=== PATIENT | female | born 1960 | race Caucasian/White ===

== ENCOUNTER 2019-01-16 10:18 | Observation (INO) | payer OTHER, BC ==
[~2019-01-16 10:18] MED LIST: Aspirin 81 mg CHEW TAB* 81 MG TAB.CHEW PO SCH
[2019-01-16 11:15] LABS: ABS Basophils 0.1 10^3/ul (0-0.2); ABS Eosinophils 0.1 10^3/ul (0-0.6); ABS Lymphocytes 1.3 10^3/ul (1.0-4.8); ABS Monocytes 0.8 10^3/ul (0-0.8); ABS Neutrophils 5.5 10^3/ul (1.5-7.7); Eosinophil % 1.7 %; Hematocrit 42 % (35-47); Hemoglobin 13.9 g/dL (12.0-16.0); Mean Corpuscular HGB Conc 33 g/dL (31-36); Mean Corpuscular Hemoglobin 31 pg (27-31); Mean Corpuscular Volume 92 fL (80-97); Mean Platelet Volume 9.5 fL (7.4-10.4); Nucleated Red Blood Cells % 0.2; Platelet Count 151 10^3/uL (150-450); Red Blood Count 4.52 10^6 /uL (3.70-4.87); Red Cell Distribution Width 13 % (10-15); White Blood Count 7.9 10^3/uL (3.5-10.8)
[2019-01-16 11:36] LABS: Albumin 4.2 g/dL (3.2-5.2); Albumin/Globulin Ratio 1.4 (1-3); BUN/Creatinine Ratio 22.8 (8-20); EGFR African American 131.8 (>60); EGFR Non-African American 108.9 (>60); Globulin 2.9 g/dL (2-4); Potassium 3.9 mmol/L (3.5-5.0); Total Bilirubin 0.4 mg/dL (0.2-1.0); Total Protein 7.1 g/dL (6.4-8.9)
[2019-01-16 11:38] LABS: Troponin I 0.01 ng/mL (<0.04)
--- NOTE | 2019-01-16 12:04 | ED ---
HPI Chest Pain - HPI Summary HPI Summary: This patient is a 58 year old F presenting to [facility] with a chief complaint of CP since 2 hours ago.The patient rates the pain 0/10 in severity. Patient states she had routine stress test today and was sent to ED for further evaluation. Symptoms aggravated by exertion. Symptoms alleviated by rest. Patient reports CP and SOB when she exercises Patient denies fever, chills, erythema of eyes, sore throat, cough, abdominal pain, N/V, dysuria, hematuria, myalgia, edema, rash, or dizziness. Patient does not smoke or drink. Her mother and father both had heart disease. She has hx of HTN and high cholesterol. - History of Current Complaint Chief Complaint: EDGeneral Time Seen by Provider: 01/16/19 10:37 Hx Obtained From: Patient Onset/Duration: Started Hours Ago - 2 Timing: Lasting Hours - 2 Initial Severity: Mild Current Severity: None Pain Intensity: 0 Pain Scale Used: 0-10 Numeric Aggravating Factor(s): Exertion Alleviating Factor(s): Rest Associated Signs and Symptoms: Positive: Chest Pain, Shortness of Breath. Negative: Dizziness, Fever, Chills, Nausea, Cough, Productive Cough, Abdominal Pain, Vomiting - Allergy/Home Medications Allergies/Adverse Reactions: Allergies Allergy/AdvReac Type Severity Reaction Status Date / Time Sulfa (Sulfonamide Allergy Swelling Verified 01/16/19 10:31 Antibiotics) Of Face,Lips,& Throat PMH/Surg Hx/FS Hx/Imm Hx Previously Healthy: No Opthamlomology History: Denies: Hx Cataracts, Hx Legally Blind EENT History: Denies: Hx Deafness - Cancer History Hx Chemotherapy: No Hx Radiation Therapy: No - Surgical History Surgical History: Yes Surgery Procedure, Year, and Place: Infectious Disease History: No Infectious Disease History: Denies: Traveled Outside the [place] in Last 30 Days - Family History Known Family History: Positive: Cardiac Disease - mother and father had heart disease - Social History Alcohol Use: None Hx Substance Use: No Substance Use Type: Reports: None Hx Tobacco Use: No Smoking Status (MU): Never Smoked Tobacco Do You Chew or Dip Tobacco: No Have You Chewed or Dipped Tobacco in the LAST YEAR: No Have You Smoked in the Last Year: No Review of Systems Negative: Fever, Chills Negative: Erythema Negative: Sore Throat Positive: Chest Pain Positive: Shortness Of Breath. Negative: Cough Negative: Abdominal Pain, Vomiting, Nausea Negative: dysuria, hematuria Negative: Myalgia, Edema Negative: Rash Neurological: Other - negative - dizziness All Other Systems Reviewed And Are Negative: Yes Physical Exam - Summary Physical Exam Summary: Constitutional: Well-developed, Well-nourished, Alert. (-) Distressed Skin: Warm, Dry HENT: Normocephalic; Atraumatic Eyes: Conjunctiva normal Neck: Musculoskeletal ROM normal neck. (-) JVD, (-) Stridor, (-) Tracheal deviation Cardio: Rhythm regular, rate normal, Heart sounds normal; Intact distal pulses; The pedal pulses are 2+ and symmetric. Radial pulses are 2+ and symmetric. (-) Murmur Pulmonary/Chest wall: Effort normal. (-) Respiratory distress, (-) Wheezes, (-) Rales Abd: Soft, (-) tenderness, (-) Distension, (-) Guarding, (-) Rebound Musculoskeletal: (-) Edema Lymph: (-) Cervical adenopathy Neuro: Alert, Oriented x3 Psych: Mood and affect Normal Triage Information Reviewed: Yes Vital Signs On Initial Exam: Initial Vitals Temp Pulse Resp BP Pulse Ox 97.3 F 80 16 164/88 100 01/16/19 10:28 01/16/19 10:28 01/16/19 10:28 01/16/19 10:28 01/16/19 10:28 Vital Signs Reviewed: Yes Diagnostics - Vital Signs Vital Signs Temp Pulse Resp BP Pulse Ox 01/16/19 11:00 79 20 100 01/16/19 10:46 76 23 99 01/16/19 10:45 78 171/81 100 01/16/19 10:28 97.3 F 80 16 164/88 100 - Laboratory Lab Results: Lab Results 01/16/19 01/16/19 01/16/19 Range/Units 11:07 11:07 11:07 WBC 7.9 (3.5-10.8) 10^3/uL RBC 4.52 (3.70-4.87) 10^6 /uL Hgb 13.9 (12.0-16.0) g/dL Hct 42 (35-47) % MCV 92 (80-97) fL MCH 31 (27-31) pg MCHC 33 (31-36) g/dL RDW 13 (10-15) % Plt Count 151 (150-450) 10^3/uL MPV 9.5 (7.4-10.4) fL Neut % (Auto) 70.0 % Lymph % (Auto) 17.0 % [place] % (Auto) 9.8 % Eos % (Auto) 1.7 % Baso % (Auto) 1.5 % Absolute Neuts (auto) 5.5 (1.5-7.7) 10^3/ul Absolute Lymphs (auto) 1.3 (1.0-4.8) 10^3/ul Absolute Monos (auto) 0.8 (0-0.8) 10^3/ul Absolute Eos (auto) 0.1 (0-0.6) 10^3/ul Absolute Basos (auto) 0.1 (0-0.2) 10^3/ul Absolute Nucleated RBC 0.0 10^3/ul Nucleated RBC % 0.2 Sodium 139 (135-145) mmol/L Potassium 3.9 (3.5-5.0) mmol/L Chloride 106 (101-111) mmol/L Carbon Dioxide 26 (22-32) mmol/L Anion Gap 7 (2-11) mmol/L BUN 13 (6-24) mg/dL Creatinine 0.57 (0.51-0.95) mg/dL Est GFR ( Amer) 131.8 (>60) Est GFR (Non-Af Amer) 108.9 (>60) BUN/Creatinine Ratio 22.8 H (8-20) Glucose 105 H (70-100) mg/dL Lactic Acid 2.2 H* (0.5-2.0) mmol/L Calcium 10.0 (8.6-10.3) mg/dL Total Bilirubin 0.40 (0.2-1.0) mg/dL AST 22 (13-39) U/L ALT 20 (7-52) U/L Alkaline Phosphatase 106 H (34-104) U/L Troponin I 0.01 (<0.04) ng/mL Total Protein 7.1 (6.4-8.9) g/dL Albumin 4.2 (3.2-5.2) g/dL Globulin 2.9 (2-4) g/dL Albumin/Globulin Ratio 1.4 (1-3) Result Diagrams: 01/16/19 11:07 01/16/19 11:07 Lab Statement: Any lab studies that have been ordered have been reviewed, and results considered in the medical decision making process. - Radiology CXR Radiology Interpretation Completed By: Radiologist Summary of Radiographic Findings: IMPRESSION: NO ACTIVE CARDIOPULMONARY DISEASE. These findings were reviewed by Dr. Mccord. - EKG 1040 Cardiac Rate: NL - 76 BPM EKG Rhythm: Sinus Rhythm Summary of EKG Findings: 76 BPM, sinus rhythm, no STEMI Chest Pain Course/Dx - Course Course Of Treatment: This patient is a 58 year old F presenting to [facility] with a chief complaint of CP since 2 hours ago.The patient rates the pain 0/10 in severity. Patient states she had routine stress test today and was sent to ED for further evaluation. Symptoms aggravated by exertion. Symptoms alleviated by rest. Patient reports CP and SOB when she exercises. Patient denies fever, chills, erythema of eyes, sore throat, cough, abdominal pain, N/V, dysuria, hematuria, myalgia, edema, rash, or dizziness. Patient does not smoke or drink. Her mother and father both had heart disease. She has hx of HTN and high cholesterol. Physical exam shows no significant findings. Lab results show BUN /creatinine ratio 22.8, glucose 105, lactic acid 2.2, alkaline phosphatase 106. EKG at 1040 shows 76 BPM, sinus rhythm, no STEMI. CXR IMPRESSION: NO ACTIVE CARDIOPULMONARY DISEASE. During the ED course, the patient was given aspirin and Lipitor. At 1153, Dr. Mccord discussed patient's case with Dr. Baptiste, cardiology. Dr. Baptiste agrees to admit patient. Patient is agreeable. - Diagnoses Provider Diagnoses: SOB (shortness of breath), Abnormal stress test - Provider Notifications Discussed Care Of Patient With: Zeeshan Baptiste Time Discussed With Above Provider: 11:53 Instructed by Provider To: Other - Dr. Mccord discussed patient's case with Dr. Baptiste, cardiology. Dr. Baptiste agrees to admit patient. Discharge - Sign-Out/Discharge Documenting (check all that apply): Patient Departure - admit Patient Received Moderate/Deep Sedation with Procedure: No - Discharge Plan Condition: Stable Disposition: ADMITTED TO [facility] - Billing Disposition and Condition Condition: STABLE Disposition: Admitted to [facility] - Attestation Statements Document Initiated by Zaneibe: Yes Documenting Scribe: Aron Lara Provider For Whom Scribe is Documenting (Include Credential): Dr. Storm Mccord MD Scribe Attestation: I, Aron Lara, scribed for Dr. Storm Mccord MD on 01/16/19 at 1606. Scribe Documentation Reviewed: Yes Provider Attestation: The documentation as recorded by the rAon brunson accurately reflects the service I personally performed and the decisions made by me, Dr. Storm Mccord MD Status of Scribe Document: Viewed
[2019-01-16 12:06] LABS: INR 1.09 (0.82-1.09)
[2019-01-16] MEDS: Aspirin 81 mg CHEW TAB* 81 MG TAB.CHEW PO SCH (12:32)
[2019-01-16] MEDS ORDERED: Metoprolol Succinate XL TAB* 100 MG PO ONE (12:53)
--- NOTE | 2019-01-16 13:01 | HP ---
AMENDED REPORT NOW INCLUDES DESIGNATED COSIGNER HISTORY AND PHYSICAL: DATE OF ADMISSION: 01/16/19 ATTENDING PHYSICIAN: Dr. Rodriguez, cardiology.* (DICTATED BY AMADOR WILDER NP) PRIMARY SHOESHINER: Dr. Jacob. PRIMARY CARE PHYSICIAN: Dr. Gutierrez. REASON FOR ADMISSION: Abnormal cardiovascular stress test suggestive of apical/ lateral ischemia with ST-segment depression and reproduction of chest pain. HISTORY OF PRESENT ILLNESS: This is a pleasant 58-year-old female patient with a notable history of idiopathic thrombocytopenia, followed by Dr. Degroot, who historically received Rituxan therapy. 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 The patient states that since July 2018, she has been noticing intermittent periods of chest pain described as tightness. She states that symptoms will occur when she is doing more than typical activity such as rushing from one campus building to another where she is employed through [employer] at [employer]. She denies resting symptoms. She denies progression of symptomatology such as increased frequency or duration of symptoms. She was seen in consultation by Dr. Jacob on 12/07/18. Due to symptomatology and risk factors, she was risk stratified with echocardiograms, which per report from 01/06/19 LVEF 55% to 60%, normal wall motion, grade 1 diastolic dysfunction , [id number] aortic insufficiency, mild- to-moderate mitral insufficiency , moderate tricuspid insufficiency, moderate pulmonary hypertension, right ventricular systolic pressure was 45 mmHg, mild borderline dilated ascending aorta. She underwent exercise stress echo today with Dr. Jacob. Per verbal report from Dr. Jacob, the patient had reproduction of chest tightness with positive ST-segment depression and apical lateral ischemia on echocardiogram. Thus, she was sent to [facility] for elective heart catheterization and observation. She is currently free of symptoms. She states that she has not received her metoprolol today. Systolic pressure in the emergency department is 170. Her is at the bedside. She denies any recent illness, infection, hospitalization and reports compliance with medications. Historically, she opted for lifestyle modification for hyperlipidemia; however, she is agreeable to starting statin therapy given probable coronary artery disease based on abnormal stress test today. Her platelets have remained stable after Rituxan therapy; however, I did speak to Nazanin at Dr. Degroot's office to inquire as to whether or not this patient will be a candidate for dual antiplatelet therapy. PAST MEDICAL HISTORY: 1. GERD. 2. Hypertension. 3. Hyperlipidemia. 4. Positive ADRIANA. 5. Rabs-gh-tdgcpfjp aortic insufficiency. 6. Pulmonary hypertension. 7. Zszu-nc-udgilbti mitral regurgitation. 8. Moderate tricuspid regurgitation. 9. PVCs. 10. A 3.5 cm TTA. PAST SURGICAL HISTORY: Includes . HOME MEDICATIONS: Include: 1. Metoprolol 100 mg a day. 2. Dupixent. Apparently, the patient receives injection every 2 weeks at the discretion of Dr. Linares for newly diagnosed eczema. ALLERGIES: The patient denies allergy to contrast dye or shellfish. She is allergic to SULFA, unknown reaction. FAMILY HISTORY: Mother at the age of 62 due to complications of cardiovascular disease. Father at the age of 60 due to complications of cardiovascular disease. Siblings have hypercholesterolemia. SOCIAL HISTORY: The patient is , lives at home with her . She is employed at [employer], where she works in the [employer] division. She denies alcohol, tobacco, or drug use. She consumes 1 cup of decaffeinated coffee a day. She exercises sporadically. REVIEW OF SYSTEMS: All systems have been reviewed and, otherwise, negative except as above mentioned in the HPI. PHYSICAL EXAMINATION GENERAL: The patient is lying in bed, with nurse at bedside trying to gain IV access. is at bedside as well. She appears in no apparent distress. She is cooperative with examination. She is alert and oriented x3. VITAL SIGNS: Temperature 97.3, pulse 80, respirations 16, oxygenation 100% on room air, blood pressure 164/88. HEENT: Head is atraumatic, normocephalic. Oral mucosa is moist. Tongue is midline. NECK: Supple. Trachea midline. No JVD. No carotid bruits. LUNGS: Auscultated posteriorly. No evidence of adventitious breath sounds. CARDIAC: Normal S1, S2. Regular rate and rhythm. There is a grade 2/5 diastolic right sternal border murmur consistent with AI. Otherwise, no gallop or rub noted. /GI: Abdomen is soft, nontender. Normoactive bowel sounds x4. EXTREMITIES: No pedal edema, no clubbing, no cyanosis. PERIPHERAL VASCULAR: 2+ brachial and dorsalis pedis pulses palpated bilaterally and symmetrically. DIAGNOSTIC STUDIES/LAB DATA: Blood work obtained 01/16/19: White count 7.9, hemoglobin 13.9, hematocrit 42, platelets 151. CMP, PT, INR, and troponin are currently pending. ECG, 01/16/19: Sinus rhythm, rate 76. There is no ST-segment elevation, T- wave changes, or pathologic Q waves appreciated. ASSESSMENT AND PLAN: 1. Abnormal stress echocardiogram suggestive of apical lateral ischemia with reproduction of chest tightness and ST-segment depression. Official report is pending. Risk factors include hypertension, hyperlipidemia, and family history. The patient will be admitted to telemetry in observation status. Potential cardiac catheterization tomorrow, 01/17/19. I did speak with Dr. Degroot 's office and asked that Dr. Degroot contact Dr. Rodriguez to ensure that the patient would be a candidate for potential dual antiplatelet therapy if indicated. At this current time, we will initiate Lipitor 80 mg p.o. at bedtime. Her last LDL was 179 in September 2018. She is agreeable to statin initiation. We will also start aspirin 81 mg a day. Make the patient n.p.o. after midnight. Await CMP, PT, INR, and follow closely. The patient is aware of the risks versus benefits for cardiac catheterization including the role of dual antiplatelet therapy, potential need for transfer if she needs bypass surgery, risks of stroke; heart attack; . We will have consent obtained by Dr. Rodriguez if applicable after discussion with Dr. Degroot. 2. History of hypertension. Systolic blood pressure in the emergency department is 168. She states that she has not received metoprolol today. Thus , I have asked the emergency room nurse caring for the patient to administer metoprolol 100 mg a day. Recommend a goal blood pressure less than 130/80 given known 3.5 cm thoracic aortic ectasia. We will follow. 3. History of hyperlipidemia. LDL is 179. Goal LDL if the patient truly has coronary artery disease is less than 70. Thus, we will start Lipitor 80 mg p.o. at bedtime. She will need repeat fasting lipid and liver function tests in 6 weeks' time. 4. History of idiopathic thrombocytopenic purpura with prior use of Rituxan therapy. Platelets are stable. Follows with Dr. Degroot. We will await Dr. Degroot' s input in regards to whether or not the patient is a candidate for dual antiplatelet therapy. 5. Disposition. Pending course. The patient is full code. We will admit to [address] and follow closely. Dr. Rodriguez agrees with the above assessment and plan. Please assign Dr. Rodriguez as co signing physician AMADOR WILDER, RAIL CAR DRIVER [id number]/[facility] #: [id number] LIAM
[2019-01-16 18:17] LABS: Troponin I 0.02 ng/mL (<0.04)
[2019-01-16] MEDS ORDERED: Nitroglycerin TAB 0.4 MG* 0.4 MG TAB SL PRN (19:44)
[2019-01-16 20:42] LABS: HDL Cholesterol 37.1 mg/dL
[2019-01-16] MEDS ORDERED: Atorvastatin* 80 MG TAB PO ONE (21:00)
[2019-01-17] MEDS ORDERED: NS 0.9% 1000 ML** 1,000 ML IV SCH ×2 (08:00→10:45)
[2019-01-17] MEDS ORDERED: Metoprolol Succinate XL TAB* 100 MG PO SCH (09:00)
[2019-01-17] MEDS: Aspirin 81 mg CHEW TAB* 81 MG TAB.CHEW PO SCH (09:03)
[2019-01-17] MEDS ORDERED: Iohexol 350 (CONTRAST) 200 ML MDV IV ONE (09:11)
[2019-01-17] MEDS ORDERED: Heparin 2 UNITS/ML IVPREMIX* 2,000 UNIT/1,000 ML BAG IV ONE (09:11)
[2019-01-17] MEDS ORDERED: Lidocaine 1% INJ* 10 MG/ML 30 ML SDV ONE (09:11)
[2019-01-17] MEDS ORDERED: Midazolam* 1 MG/ML 5 ML VIAL (5 MG) ONE (09:19)
[2019-01-17] MEDS ORDERED: fentaNYL* 50 MCG/ML 2 ML VIAL (100 MCG VIAL) ONE (09:19)
[2019-01-17] MEDS ORDERED: Heparin(*) 1000 UNIT/ML 10 ML VIAL CATH LAB IV ONE (09:21)
[2019-01-17] MEDS ORDERED: VERAPAMIL 2.5 MG/ML 2 ML VIAL ** 5 mg/2 ml ONE (09:21)
[2019-01-17] MEDS ORDERED: nitroGLYCERIN DRIP* 25,000 MCG/250 ML BTL ONE (09:22)
[2019-01-17] MEDS ORDERED: Lisinopril TAB* 5 MG PO SCH (11:00)
[2019-01-17 14:27] VITALS: BP 144/63
--- NOTE | 2019-01-17 19:09 | DS ---
CC: Dr. Jacob; Dr. Bimal Gutierrez * DISCHARGE SUMMARY: DATE OF ADMISSION: 01/16/19 DATE OF DISCHARGE: 01/17/19 FAMILY NURSE: Dr. Jacob. PRIMARY: Dr. Bimal Gutierrez. DISCHARGE DIAGNOSES: 1. Angina pectoris, functional class 1. 2. Hypertension. 3. Hyperlipidemia. PROCEDURES: Cardiac cath, right radial access, 01/17/19. DISCHARGE MEDS: Unchanged: 1. prol-XL 100 mg daily. New medications: 1. Nitroglycerin 0.4 sublingual p.r.n. 2. Aspirin 81 mg daily. 3. Lisinopril 5 mg daily. 4. Lipitor 80 mg daily. ACTIVITY: To avoid strenuous exertion for the next week; to minimize lifting, right hand; wound care shower only for 3 days. FOLLOWUP: Risk check with Dr. Mills next week as scheduled, subsequent follow up Dr. Jacob. HISTORY: See H and P. LABORATORY DATA: Admission CBC, BMP were notable only for random blood sugar of 105. Her creatinine was 0.57. Alk phos elevated at 106. Her troponin 0.01 , 0.03, 0.02. Cholesterol after several months of dietary modification, total 208. Triglycerides 81, LDL, 155, HDL 37.1. EKG, normal sinus rhythm, normal tracing. Chest x-ray 01/16/19, per report, no active disease. HOSPITAL COURSE: She underwent cardiac cath for history of stable functional class 1 angina, on submaximal medical therapy, but with an intermediate risk stress echo. She has a history of hyperlipidemia and has tried dietary modification to lower her LDL, which remains elevated nonetheless. She has a history of hypertension, generally well controlled with Toprol-XL. Cardiac cath via the right radial approach was uncomplicated, reveled normal LV systolic function with a normal ejection fraction of 65%. Her RCA is small and not dominant, her circumflex is large, dominant with a proximal 75% stenosis traversing the origin of a marginal side branch, Ruby 1, 1, 1 bifurcation lesion. Her LAD is relatively small in caliber, has a long, approximately 40 mm , diffuse mid segment stenosis of approximately 50% to 60%. As she has functional class 1 angina, on submaximal therapy, has not been treated with statins, initial management will be medical with addition of a high dose potent statin, and STEVEN inhibitor for hypertension, and aspirin 81 mg daily. She was also given nitroglycerin sublingual and instructed on its use. If she fails medical management, she is certainly a candidate for percutaneous revascularization. She will follow up next week with a wrist check and with Dr. Jacob subsequently. I have emphasized to them the lack of evidence supporting stenting for stable coronary artery disease other than for improved functional capacity. She received full discharge instructions. [id number]/[facility] #: [id number] LIAM
[2019-01-17] MEDS ORDERED: Atorvastatin* 80 MG TAB PO SCH (21:00)
== END 2019-01-17 15:34 | disposition home or self-care (01) ==
LOC: ED 10:18 → MEDTELE 11:25
PROVIDERS: ADMIT Internal Medicine Cardiovascular Disease; ATTEND Internal Medicine Cardiovascular Disease
DX: I20.9 Angina pectoris, unspecified (principal); I10 Essential (primary) hypertension; E78.5 Hyperlipidemia, unspecified; R94.39 Abnormal result of other cardiovascular function study; Z79.82 Long term (current) use of aspirin; K21.9 Gastro-esophageal reflux disease without esophagitis; R76.0 Raised antibody titer; I27.20 Pulmonary hypertension, unspecified; I34.0 Nonrheumatic mitral (valve) insufficiency; I07.1 Rheumatic tricuspid insufficiency; I49.3 Ventricular premature depolarization; Z88.2 Allergy status to sulfonamides
CPT/HCPCS: 36415; 71045; 80053; 80061; 83605; 84484; 85025; 85610; 93005; 93458; 99284; A9270-GY; G0378; J1644; J2250; J3010